=== PATIENT | male | born 1985 | race Caucasian/White ===

== ENCOUNTER → 2018-03-18 15:00 | Outpatient (CLI) | payer OTHER, SELFPAY | DX: Z23 Encounter for immunization (principal) | CPT/HCPCS: 90471; 90686 ==

== ENCOUNTER → 2019-03-31 15:27 | Outpatient (CLI) | payer OTHER, SELFPAY | DX: Z23 Encounter for immunization (principal) | CPT/HCPCS: 90471; 90686 ==

== ENCOUNTER → 2020-12-27 08:32 | Outpatient (CLI) | payer OTHER, SELFPAY ==
--- NOTE | 2020-12-27 | DI.RAD.S_ITS ---
PROCEDURE: FL SHOULDER INJECTION MR/CT LT INDICATIONS: LEFT SHOULDER PAIN COMPARISON: None. TECHNIQUE: The indications, alternatives, benefits, risks, and complications of the procedure were explained to the patient. Written informed consent was obtained and placed in the chart. The shoulder was examined fluoroscopically and a site for needle placement chosen for entry into the glenohumeral joint from an anterior approach. The skin was prepped and draped in a sterile fashion, and 1% lidocaine infiltrated from skin down to joint capsule. A spinal needle was inserted into the glenohumeral joint, and a small amount of iodinated contrast media injected to confirm intra-articular placement of the needle tip. This was followed by approximately 12 mL dilute solution of a gadolinium containing MR contrast agent. The needle was removed and a dressing was applied. The patient was given postprocedural instructions and sent to the MR suite for MR imaging. FINDINGS: A single fluoroscopic spot image demonstrates intra-articular location of injected iodinated contrast. IMPRESSION: Successful fluoroscopically guided administration of dilute Gadolinium solution into the shoulder joint for MR arthrogram. Dictated by: Abebe Zaidi M.D. on 12/27/2020 at 10:52 Approved by: Abebe Zaidi M.D. on 12/27/2020 at 10:52
--- NOTE | 2020-12-27 | DI.MRI.S_ITS ---
PROCEDURE: MR SHOULDER LT W CON INDICATIONS: LEFT SHOULDER PAIN TECHNIQUE: After the administration of 12 mL of dilute intra-articular Gadolinium contrast, oblique coronal T1 and T2 spin echo with fat saturation, oblique sagittal T1 spin echo with and without fat saturation, oblique sagittal T2 fast spin echo with fat saturation, axial T1 spin echo with fat saturation through the shoulder. COMPARISON: [facility], CR, XR SHOULDER 2+ VIEWS LEFT, 12/13/2020, 14:30. FINDINGS: Image quality: Excellent. Rotator cuff: There is a high-grade transversely oriented tear of the mid/anterior supraspinatus tendon at the humeral insertion site, measuring roughly 7 mm anteroposterior. The infraspinatus, and subscapularis tendons appear intact throughout. No rotator cuff muscle atrophy on sagittal images. Bones and bursae: No bone marrow contusions or fractures. Mild acromioclavicular joint degeneration. The acromion demonstrates conventional anatomy, without an os acromiale. A small amount of subacromial fluid. Capsule and soft tissues: Moderate signal loss within the posterosuperior glenoid labrum is present, consistent with labral tearing. The long head of the biceps tendon demonstrates normal location and morphology. The rotator interval appears normal, without fibrosis. The coracohumeral ligament is of normal thickness. No intra-articular bodies. IMPRESSION: 1. Findings suspicious for posterosuperior glenoid labral tear. 2. High-grade focal supraspinatus tendon tear. 3. Subacromial bursitis. 4. Acromioclavicular joint osteoarthritis. Dictated by: Dottie Machuca M.D. on 12/27/2020 at 11:04 Approved by: Dottie Machuca M.D. on 12/27/2020 at 11:06
== END ==
PROVIDERS: Referring Provider Orthopaedic Surgery; Visit Provider Orthopaedic Surgery
DX: M25.512 Pain in left shoulder (principal); M75.112 Incomplete rotator cuff tear or rupture of left shoulder, not specified as traumatic; M75.52 Bursitis of left shoulder; M19.012 Primary osteoarthritis, left shoulder
CPT/HCPCS: 23350; 73222; 77002

== ENCOUNTER → 2021-07-05 15:26 | Outpatient (CLI) | payer OTHER, SELFPAY ==
--- NOTE | 2021-07-05 | DI.MRI.S_ITS ---
PROCEDURE: MR KNEE RT WO CON INDICATIONS: other instability of Rt knee. Lateral knee pain surrounding the patella. TECHNIQUE: Noncontrast sagittal PD fast spin echo and T2 fast spin echo with fat saturation, sagittal 3-D FLASH with fat saturation; coronal T1 spin echo and PD fast spin echo with fat saturation, and axial PD fast spin echo with fat saturation through the knee. COMPARISON: None. FINDINGS: Image quality: Excellent. Menisci: The medial and lateral menisci demonstrate normal morphology and internal signal. The meniscal root ligaments appear intact. Cruciate ligaments: The anterior and posterior cruciate ligaments appear intact. Medial structures: The medial collateral ligament appears intact. The visualized portions of the pes anserinus tendons appear normal. No abnormal bursal fluid. Lateral structures: The lateral collateral ligament, long and short heads of the biceps femoris tendon appear intact. The popliteus tendon appears normal. The left hip band appears normal. Anterior structures: The quadriceps and patellar tendons appear intact. Patellar alignment is normal. No femoral trochlear dysplasia or ventral trochlear prominence. No edema in the infrapatellar fat pad. Bones and cartilage: Patchy T2 hyperintense signal is seen underlying the lateral tibial spine, compatible with contusion. Signal heterogeneity and fissuring are seen in the medial and lateral patellar facets as well as the lateral tibial plateau hyaline cartilage. Joint space: Small knee joint fluid. Trace Up's cyst. IMPRESSION: 1. Osseous contusion underlying the lateral tibial spine. 2. 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 on 07/05/2021 at 16:32 Approved by: Chris Miller M.D. on 07/05/2021 at 16:38
== END ==
PROVIDERS: Referring Provider Orthopaedic Surgery Foot and Ankle Surgery; Visit Provider Orthopaedic Surgery Foot and Ankle Surgery
DX: S80.01XA Contusion of right knee, initial encounter (principal); M22.41 Chondromalacia patellae, right knee; M25.361 Other instability, right knee
CPT/HCPCS: 73721

== ENCOUNTER 2022-09-08 21:27 | Emergency (ER) | payer OTHER, SELFPAY ==
[2022-09-08 21:42] VITALS: BP 137/77; PULSE 89; RESP 16; TEMP 36.7; O2SAT 98; BMI 31.1
== END 2022-09-09 00:53 | disposition left against medical advice (07) ==
PROVIDERS: Emergency Provider Emergency Medicine; PCP Family Medicine
CPT/HCPCS: 99281

== ENCOUNTER → 2022-12-28 10:58 | Outpatient (CLI) | payer OTHER, SELFPAY | PROVIDERS: PCP Family Medicine; Visit Provider Nurse Practitioner Family | DX: J02.9 Acute pharyngitis, unspecified (principal) | CPT/HCPCS: 87070 ==

== ENCOUNTER → 2023-05-11 09:38 | Outpatient (CLI) | payer OTHER, SELFPAY ==
[2023-05-11 11:00] LABS: Hematocrit 36.6 % (41-53); Hemoglobin 11.8 g/dL (13.5-17.5); Mean Corpuscular HGB Conc 32.1 % (30-36); Mean Corpuscular Hemoglobin 28.9 PG (26-34); Mean Corpuscular Volume 89.9 fL (80-100); Platelet Count 167 X10^3/uL (150-400); Red Blood Cell Count 4.08 X10^6/uL (4.5-5.9); Red Cell Distribution Width 17.1 % (11.6-14.8)
[2023-05-11 11:03] LABS: Alanine Aminotransferase 22 IU/L (<50); Albumin 4.2 g/dL (3.5-5.0); Albumin Globulin Ratio 1.4 (1.0-2.8); Alkaline Phosphatase 73 U/L (38-126); Aspartate Aminotransferase 34 IU/L (17-59); BUN Creatinine Ratio 15.2 (6-22); Bilirubin Total 0.6 mg/dL (0.2-1.3); Blood Urea Nitrogen 14 mg/dL (9-20); Calcium 9.7 mg/dL (8.4-10.2); Carbon Dioxide 27 mmol/L (22-32); Chloride 103 mmol/L (98-107); Estimated Glomerular Filt Rate > 60 mL/min (>60); Globulin 2.9 g/dL (1.7-4.1); Glucose 72 mg/dL (70-100); HEMOLYSIS 43 (0-50); Potassium 4.1 mmol/L (3.4-5.1); Sodium 138 mmol/L (137-145); Total Protein 7.1 g/dL (6.3-8.2)
[2023-05-11 11:28] LABS: Testosterone 134 ng/dL (132-813)
[2023-05-11 11:34] LABS: TSH w/ Reflex to FT4 1.94 uIU/mL (0.47-4.68)
[2023-05-11 12:26] LABS: Add Manual Diff / Slide Review YES; White Blood Cell Count 114.4 X10^3/uL (4.5-11.0)
[2023-05-11 12:41] LABS: RBC Morphology Normal Morphology; Total Cells Counted 100
[2023-05-11 15:36] LABS: Hep C Virus Ab w/Reflex Quant NEGATIVE s/c (NEGATIVE)
[2023-05-12 06:22] LABS: Cholesterol HDL Ratio 6.6 ratio (0.0-5.0); Cholesterol,Total 138 mg/dL (100-199); HDL Cholesterol 21 mg/dL (>39); LDL Cholesterol Cal 53 mg/dL (0-99); Triglycerides 423 mg/dL (0-149); VLDL Cholesterol Cal 64 mg/dL (5-40)
== END ==
PROVIDERS: PCP Nurse Practitioner Family; Referring Provider Nurse Practitioner Family; Visit Provider Nurse Practitioner Family
DX: Z13.1 Encounter for screening for diabetes mellitus (principal); R53.83 Other fatigue; Z13.220 Encounter for screening for lipoid disorders; Z11.59 Encounter for screening for other viral diseases
CPT/HCPCS: 36415; 80053; 80061; 84403; 84443; 85007; 85025; 86803

== ENCOUNTER 2023-05-11 13:51 | Emergency (ER) | payer OTHER, SELFPAY ==
[2023-05-11 14:06] VITALS: BP 127/72; PULSE 71; RESP 18; TEMP 36.7; O2SAT 96; BMI 29.1
--- NOTE | 2023-05-11 14:32 | PC.NURSE ---
Pt reports that he went to see his pcp for a routine manager of care exam and to have labs done. PCP office called pt and reported to him that his wbc count was very high and he needed to come to the ED for a recheck to r/o lab error. 20g IV placed in Left AC. Pt tolerated well. Pt denies any sx of illness including cp, fever, n/v/d, sob. pt a& ox4. erp analyst intact. pt reports that he has been feeling great and has no other complaints.
[2023-05-11 14:45] LABS: Alanine Aminotransferase 22 IU/L (<50); Albumin 4.3 g/dL (3.5-5.0); Albumin Globulin Ratio 1.4 (1.0-2.8); Alkaline Phosphatase 73 U/L (38-126); Aspartate Aminotransferase 30 IU/L (17-59); BUN Creatinine Ratio 15.1 (6-22); Bilirubin Total 0.5 mg/dL (0.2-1.3); Blood Urea Nitrogen 14 mg/dL (9-20); Calcium 9.9 mg/dL (8.4-10.2); Carbon Dioxide 30 mmol/L (22-32); Chloride 102 mmol/L (98-107); Estimated Glomerular Filt Rate > 60 mL/min (>60); Globulin 3.1 g/dL (1.7-4.1); Glucose 104 mg/dL (70-100); HEMOLYSIS 23 (0-50); Lactate Dehydrogenase 615 U/L (120-246); Phosphorous 3.8 mg/dL (2.5-4.5); Potassium 3.8 mmol/L (3.4-5.1); Sodium 137 mmol/L (137-145); Total Protein 7.4 g/dL (6.3-8.2); Uric Acid 7.7 mg/dL (3.5-8.5)
[2023-05-11 14:52] LABS: Hematocrit 36.3 % (41-53); Hemoglobin 11.6 g/dL (13.5-17.5); Mean Corpuscular HGB Conc 32.1 % (30-36); Mean Corpuscular Hemoglobin 28.5 PG (26-34); Mean Corpuscular Volume 88.9 fL (80-100); Platelet Count 168 X10^3/uL (150-400); Red Blood Cell Count 4.08 X10^6/uL (4.5-5.9); Red Cell Distribution Width 16.7 % (11.6-14.8)
[2023-05-11 15:01] LABS: Add Manual Diff / Slide Review YES; White Blood Cell Count 112.3 X10^3/uL (4.5-11.0)
[2023-05-11 15:15] LABS: Nucleated Red Blood Cells 1 #/Diff; RBC Morphology Normal Morphology; Total Cells Counted 100
--- NOTE | 2023-05-11 16:35 | ED.RECABL ---
HPI - Recheck/Abnormal Lab/Rx General Chief Complaint: Recheck/Abnormal Lab/Rx Stated Complaint: DR sent white blood count low Time Seen by Provider: 05/11/23 14:10 Source: patient Mode of arrival: Ambulatory History of Present Illness HPI narrative: Patient 37-year-old male presenting today at request of PCP. He went today to establish care he has no complaints routine blood work was done he is found to have leukocytosis 114.4 sent to the ED for further evaluation. He reports that he has not had any night sweats or fatigue he is had no weight loss he freely is not having any complaints. There is some family history of cancer. at bedside actually reports that he is had 30 lb weight loss over the last 2 months without trying. He reports that he is cut out soda only. Both deny any significant night sweats. Related Data Previous Rx's Medication Instructions Recorded cyclobenzaprine 5 mg tablet 5 mg PO TID PRN muscle spasm #20 06/12/22 tabs Allergies Allergy/AdvReac Type Severity Reaction Status Date / Time No Known Drug Allergies Allergy Unverified 12/28/22 10:49 Review of Systems Review of Systems ROS Unobtainable: All systems reviewed & are unremarkable except as noted in HPI and below Patient History Social History Smoking Status: Never smoker Smoking Status: Never smoker alcohol intake frequency: other Substance Use Type: does not use Exam Initial Vital Signs Initial Vital Signs: Vital Signs Temperature 98.1 F 05/11/23 14:06 Pulse Rate 71 05/11/23 14:06 Respiratory Rate 18 05/11/23 14:06 Blood Pressure 127/72 05/11/23 14:06 Pulse Oximetry 96 05/11/23 14:06 Oxygen Delivery Method Room Air 05/11/23 14:06 GENERAL: Alert well-appearing 37-year-old male HEENT: Head atraumatic,EOMI, pupils reactive, face symmetric, moist mucous membranes, no cervical lymphadenopathy CARDIOVASCULAR: Regular rate and rhythm without murmurs, rubs or gallops. RESPIRATORY: Breath sounds equal bilaterally, no wheezes rales or rhonchi. EXTREMITIES: Normal range of motion, no clubbing or edema. Neurovascularly intact NEUROLOGICAL: Alert and oriented x4.Normal gait and speech. SKIN: Warm, dry, no laceration, no petechiae, no rashes or lesions. Course Orders Ordered: ED Orders 05/11/23 14:26 CBC Auto Diff [Complete Blood Count AUTO DIFF] Stat CMP [Comprehensive Metabolic Panel] Stat LDH [Lactate Dehydrogenase] Stat PHOS [Phosphorous] Stat Uric Acid Stat 05/11/23 17:13 PT [Prothrombin Time INR] Stat PTT Partial Thromboplastin [place] Stat Vital Signs Vital signs: Vital Signs - 8 hr 05/11/23 14:06 05/11/23 17:31 Temperature 98.1 F Pulse Rate 71 77 Respiratory Rate 18 16 Blood Pressure 127/72 130/67 Pulse Oximetry 96 99 Oxygen Delivery Method Room Air Room Air MDM - Recheck/Abnormal Lab/Rx Lab Data 05/11/23 14:26 05/11/23 14:26 Labs: Lab Results 05/11/23 Range/Units 14:26 WBC 112.3 H* (4.5-11.0) X10^3/uL RBC 4.08 L (4.5-5.9) X10^6/uL Hgb 11.6 L (13.5-17.5) g/dL Hct 36.3 L (41-53) % MCV 88.9 (80-100) fL MCH 28.5 (26-34) PG MCHC 32.1 (30-36) % RDW 16.7 H (11.6-14.8) % Plt Count 168 (150-400) X10^3/uL Neut % (Auto) Not Reportable Lymph % (Auto) Not Reportable Schley % (Auto) Not Reportable Eos % (Auto) Not Reportable Baso % (Auto) Not Reportable Lymph # (Auto) Not Reportable Schley # (Auto) Not Reportable Baso # (Auto) Not Reportable Total Counted 100 Seg Neutrophils % 51.0 (38-70) % Band Neutrophils % 7.0 (3-7) % Lymphocytes % (Manual) 1.0 L (25-45) % Monocytes % (Manual) 4.0 (2-11) % Eosinophils % (Manual) 1.0 L (2-4) % Metamyelocytes % 17.0 H (-0) % Myelocytes % 19.0 H (-0) % Neutrophils # (Manual) 65204 H (5989-7001) /uL Nucleated RBCs 1 H ( - 0) #/Diff RBC Morphology Normal morphology Sodium 137 (137-145) mmol/L Potassium 3.8 (3.4-5.1) mmol/L Chloride 102 (98-107) mmol/L Carbon Dioxide 30 (22-32) mmol/L BUN 14 (9-20) mg/dL Creatinine 0.93 (0.66-1.25) mg/dL Estimated GFR > 60 (>60) mL/min BUN/Creatinine Ratio 15.1 (6-22) Glucose 104 H (70-100) mg/dL Uric Acid 7.7 (3.5-8.5) mg/dL Calcium 9.9 (8.4-10.2) mg/dL Phosphorus 3.8 (2.5-4.5) mg/dL Total Bilirubin 0.5 (0.2-1.3) mg/dL AST 30 (17-59) IU/L ALT 22 (<50) IU/L Alkaline Phosphatase 73 (38-126) U/L Lactate Dehydrogenase 615 H (120-246) U/L Total Protein 7.4 (6.3-8.2) g/dL Albumin 4.3 (3.5-5.0) g/dL Globulin 3.1 (1.7-4.1) g/dL Albumin/Globulin Ratio 1.4 (1.0-2.8) MDM Narrative Medical decision making narrative: Patient is a 37-year-old male sent here for abnormal blood work now reports 30 lb weight loss over 2 months. Blood work does confirm leukocytosis with WBC count of 112. There are no blast cells. LDH is elevated uric acid is within normal limits at 7.7. He is not anemic or have thrombocytopenia. 1640 Dr. Evans on-call oncology updated on patient's symptoms test results concern for possibly ATLS versus CLL. There are no blast cells which is reassuring. He and Dr. Bustamante discussed on the phone agree probably more of a CLL. They agree he can follow-up as an outpatient tomorrow. While I was in the room talking with patient office called he has now has a scheduled appointment tomorrow at 2:10 p.m.. I have called patient's PCP left message for an urgent emergent referral. Instructed patient to also call there tomorrow referral. Actually did speak with the PCP who is aware of patient's abnormal blood work and she is the 1 who sent him here for further evaluation. Discharge Plan Departure Patient Disposition: Home Clinical Impression: Chronic lymphocytic leukemia Instructions: Chronic Lymphocytic Leukemia Activity Restrictions/Additional Instructions: At this time you are set up to go see Dr. Evans tomorrow at 2:10 p.m. We will try and follow-up on the referral tomorrow however please feel free to call her PCP office tomorrow to make sure it goes through Return if you should have fever weakness shortness of breath or any new or worsening symptoms Remember its a marathon.... you got this Prescriptions: No Action cyclobenzaprine 5 mg tablet 5 mg PO TID PRN (Reason: muscle spasm) Qty: 20 0RF Referrals: Justin Edwards MD [Physician] - Yessica Mir MD [Physician] - Aline Scruggs RN [Primary Care Provider] - Stand Alone Forms: Patient Portal/API
[2023-05-11 17:31] VITALS: BP 130/67; PULSE 77; RESP 16; O2SAT 99
== END 2023-05-11 17:32 | disposition home or self-care (01) ==
PROVIDERS: Emergency Provider Emergency Medicine; PCP Nurse Practitioner Family
DX: C91.10 Chronic lymphocytic leukemia of B-cell type not having achieved remission (principal); Z13.1 Encounter for screening for diabetes mellitus; R53.83 Other fatigue; Z13.220 Encounter for screening for lipoid disorders; Z11.59 Encounter for screening for other viral diseases
CPT/HCPCS: 36415; 80053; 80061; 83615; 84100; 84403; 84443; 84550; 85007; 85025; 86803; 99283

== ENCOUNTER → 2024-04-26 15:09 | Outpatient (CLI) | payer OTHER, SELFPAY ==
--- NOTE | 2024-04-26 15:12 | DI.RAD.S_ITS ---
PROCEDURE: XR SHOULDER LT MIN 2V INDICATIONS: SHOULDER PAIN TECHNIQUE: 3 views of the shoulder were acquired. COMPARISON: None. FINDINGS: Bones: No fractures or dislocations. Joint spaces are well preserved. No suspicious bony lesions. Visualized ribs appear intact. Soft tissues: No suspicious soft tissue calcifications. IMPRESSION: No shoulder fracture or dislocation. No gross soft tissue abnormalities. Dictated by: Issac Abbott M.D. on 04/26/2024 at 16:14 Approved by: Issac bAbott M.D. on 04/26/2024 at 16:15
== END ==
DX: S49.92XA Unspecified injury of left shoulder and upper arm, initial encounter (principal); X58.XXXA Exposure to other specified factors, initial encounter
CPT/HCPCS: 73030

== ENCOUNTER → 2024-05-04 19:38 | Outpatient (CLI) | payer OTHER, SELFPAY ==
--- NOTE | 2024-05-04 19:40 | DI.MRI.S_ITS ---
PROCEDURE: MR SHOULDER LT WO CON INDICATIONS: pain in left shoulder TECHNIQUE: Noncontrast oblique coronal T2 fast spin echo with fat saturation, oblique sagittal T1 spin echo and T2 fast spin echo with fat saturation, axial T1 spin echo and T2 fast spin echo with fat saturation through the shoulder. COMPARISON: None. FINDINGS: Image quality: Excellent. Rotator cuff: Moderate to high-grade articular surface partial-thickness tear involving distal supraspinatus at its insertion on the humeral head is seen extending to musculotendinous junction. Focal full-thickness perforation involving anterior fibers of distal supraspinatus at its insertion on the humeral head with up to 4 millimeter medial retraction of torn tendon fibers and fluid-filled gap measures 8 millimeter in AP dimension. Distal infraspinatus and subscapularis tendinosis is seen. Sagittal images demonstrate mild supraspinatus muscle atrophy. Bones and bursae: No bone marrow contusions or fractures. [id number] acromioclavicular joint osteoarthritic changes are seen with joint space narrowing and downward osteophyte formation depressing the musculotendinous junction of supraspinatus. Type 2 acromion, without an os acromiale. Moderate amount of subacromial subdeltoid bursal fluid is present, no gross loose bodies. Capsule and soft tissues: The labrum is intact. The long head of the biceps tendon demonstrates normal location and morphology. The rotator interval appears normal, without fibrosis. The coracohumeral ligament is normal in thickness. IMPRESSION: 1. Moderate to high-grade articular surface partial-thickness tear involving distal supraspinatus at its insertion on the humeral head extending to musculotendinous junction. Focal full-thickness perforation involving anterior fibers of distal supraspinatus at its insertion on humeral head with up to 4 mm medial retraction of torn tendon fibers and fluid-filled gap measures 8 mm in AP dimension. Mild supraspinatus muscle atrophy. 2. [id number] acromioclavicular joint osteoarthritis. No fracture or dislocation. Moderate subacromial subdeltoid bursal fluid, no loose bodies. 3. No evidence of focal labral tear. Dictated by: Issac Abbott M.D. on 05/05/2024 at 11:15 Approved by: Issac Abbott M.D. on 05/05/2024 at 11:22
== END ==
DX: S46.012A Strain of muscle(s) and tendon(s) of the rotator cuff of left shoulder, initial encounter (principal); S49.92XA Unspecified injury of left shoulder and upper arm, initial encounter; M19.012 Primary osteoarthritis, left shoulder; X58.XXXA Exposure to other specified factors, initial encounter
CPT/HCPCS: 73221